=== PATIENT | female | born 1945 | race Hispanic/Latino ===

== ENCOUNTER 2017-04-02 12:59 | Observation (INO) | payer MEDICARE ==
[2017-04-02 13:08] VITALS: BMI 28.6
[2017-04-02 13:56] LABS: BASO % 0.6 % (0.0-2.0); EOS % 0.5 % (0.0-4.0); HEMOGLOBIN 13.4 g/dL (11.0-16.0); LYMPH # 1.8 K/uL (1.0-4.3); LYMPH % 25.8 % (20.0-40.0); MEAN CELL VOLUME 80.5 fL (81.0-99.0); MEAN CORPUSCULAR HEMOGLOBIN 27.1 pg (27.0-31.0); MEAN CORPUSCULAR HGB CONC 33.7 g/dL (33.0-37.0); MONO # 0.6 K/uL (0.0-0.8); MONO % 8.9 % (0.0-10.0); NEUT # 4.5 K/uL (1.8-7.0); NEUT % 64.2 % (50.0-75.0); RBC 4.94 Mil/uL (3.80-5.20); RED CELL DISTRIBUTION WIDTH 13.8 % (11.5-14.5)
[2017-04-02 14:04] LABS: INR 1.1; PROTHROMBIN TIME 11.8 SECONDS (9.7-12.2)
[2017-04-02 14:13] LABS: ALBUMIN 3.9 g/dL (3.5-5.0)
[2017-04-02 14:16] LABS: ALB/GLOB RATIO 1.3 (1.0-2.1); AST/SGOT 21 U/L (14-36); BLOOD UREA NITROGEN 19 mg/dL (7-17); GFR AFRICAN-AMERICAN > 60; GFR NON-AFRICAN AMERICAN > 60
--- NOTE | 2017-04-02 14:16 | CT ---
PROCEDURE: CT HEAD WITHOUT CONTRAST. HISTORY: overnight syncope, no neuro deficits now COMPARISON: None available. TECHNIQUE: Axial computed tomography images were obtained through the head/brain without intravenous contrast. Radiation dose: Total exam DLP = 677.57 mGy-cm. This CT exam was performed using one or more of the following dose reduction techniques: Automated exposure control, adjustment of the mA and/or kV according to patient size, and/or use of iterative reconstruction technique. FINDINGS: HEMORRHAGE: No intracranial hemorrhage. BRAIN: Diffuse atrophy with prominence of the ventricles and sulci noted. No mass effect or edema. Mild scattered white matter hypodensities, which are nonspecific, but often seen with chronic microvascular ischemic disease. 7 x 3 mm hypodensity within the right basal ganglia appears consistent with chronic lacunar infarct. Please note that MRI with diffusion imaging is more sensitive in the detection of acute ischemic event. VENTRICLES: No hydrocephalus. CALVARIUM: Unremarkable. PARANASAL SINUSES: Unremarkable as visualized. No significant inflammatory changes. MASTOID AIR CELLS: Unremarkable as visualized. No inflammatory changes. OTHER FINDINGS: None. IMPRESSION: Generalized atrophy. Mild scattered nonspecific white matter changes. 7 x 3 mm hypodensity within the right basal ganglia appears consistent with chronic lacunar infarct.
[2017-04-02 14:17] LABS: ALT/SGPT 20 U/L (9-52); CALCIUM 9.1 mg/dl (8.6-10.4); HDL CHOLESTEROL 52 mg/dL (30-70)
[2017-04-02 14:28] LABS: LDL CHOLESTEROL 108 mg/dL (0-129)
--- NOTE | 2017-04-02 14:46 | C.PDOC ---
History Of Present Illness 71 y/o female presents to the ED with complaints of syncopal episode at 0330 this morning after going to the bathroom. Pt denies head injury or prodrome. put patient back in bed and slept through the night. Pt came to ED for evaluation. Denies chest pain, SOB, dizziness, vomiting, headache or any other complaints. Time Seen by Provider: 04/02/17 13:28 Chief Complaint (Nursing): Syncope History Per: Patient History/Exam Limitations: no limitations Onset/Duration Of Symptoms: Mins Current Symptoms Are (Timing): Gone Activity At Onset Of Symptoms: Had Just Stood up Seizure Or Post-ictal Symptoms: None Fall Associated With With Symptoms: Yes, No Injury As Result Of Fall Severity: Mild Recent travel outside of the [place]: No - Symptoms Of CVA Recent Head Trauma: No Past Medical History Reviewed: Historical Data, Nursing Documentation, Vital Signs Vital Signs: Last Vital Signs Temp 98.7 F 04/02/17 13:08 Pulse 67 04/02/17 17:00 Resp 17 04/02/17 17:00 BP 141/55 L 04/02/17 17:00 Pulse Ox 97 04/02/17 17:00 - Medical History PMH: Asthma, HTN, Hypercholesterolemia Family History: States: Unknown Family Hx - Social History Hx Alcohol Use: No Hx Substance Use: No - Immunization History Hx Tetanus Toxoid Vaccination: Yes Hx Influenza Vaccination: Yes Hx Pneumococcal Vaccination: Yes Review Of Systems Except As Marked, All Systems Reviewed And Found Negative. Constitutional: Negative for: Fever Eyes: Negative for: Vision Change Cardiovascular: Negative for: Chest Pain Respiratory: Negative for: Shortness of Breath Gastrointestinal: Negative for: Vomiting Neurological: Positive for: Other (syncopal episode). Negative for: Headache, Dizziness Physical Exam - Physical Exam Appears: Non-toxic, No Acute Distress Skin: Warm, Dry, No Rash Head: Atraumatic, Normacephalic Eye(s): bilateral: Normal Inspection, PERRL, EOMI Neck: Normal, Normal ROM, No Midline Cervical Tenderness, No Paracervical Tenderness, Supple Chest: Symmetrical Cardiovascular: Rhythm Regular, No Murmur Respiratory: Normal Breath Sounds, No Rales, No Rhonchi, No Wheezing Gastrointestinal/Abdominal: Normal Exam, Soft, No Tenderness Extremity: Normal ROM Extremity: Bilateral: Atraumatic Neurological/Psych: Oriented x3, Normal Speech ED Course And Treatment - Laboratory Results Result Diagrams: 04/02/17 13:50 04/02/17 13:50 Lab Interpretation: Normal ECG: Interpreted By Me ECG Rhythm: Sinus Rhythm ECG Interpretation: Normal Rate From EC (BPM) O2 Sat by Pulse Oximetry: 98 (room air) Pulse Ox Interpretation: Normal - Radiology CXR: Interpreted by Me CXR Interpretation: Yes: No Acute Disease - Other Rad head CT X-Ray: Read By Radiologist (old 3x7 mm lacunar infarct) Reevaluation Time: 16:28 Reassessment Condition: Unchanged (remains normal) - Physician Consult Information Outcome Of Conversation: d/w Dr. Lopez- Hospitalist- for Dr. Tolbert's Pt's- ok to Tele Obs. Medical Decision Making Medical Decision Making: syncope 3:30 A of ? etiology old lacunar infarct on head CT adm to tele obs to consider cardiac etiologies mild UTI- macrobid started, UC sent. Disposition Doctor Will See Patient In The: Office Counseled Patient/Family Regarding: Studies Performed, Diagnosis - Disposition Disposition: HOSPITALIZED Disposition Time: 16:29 Condition: GOOD - Clinical Impression Clinical Impression: Syncope, UTI (urinary tract infection) - Scribe Statement The provider has reviewed the documentation as recorded by the Najma Waters Provider Attestation: All medical record entries made by the Najma were at my direction and personally dictated by me. I have reviewed the chart and agree that the record accurately reflects my personal performance of the history, physical exam, medical decision making, and the department course for this patient. I have also personally directed, reviewed, and agree with the discharge instructions and disposition.
--- NOTE | 2017-04-02 15:34 | RAD ---
HISTORY: syncope COMPARISON: None available. TECHNIQUE: Chest, one view. FINDINGS: Examination limited by habitus. LUNGS: No focal consolidation. Please note that chest x-ray has limited sensitivity for the detection of pulmonary masses. PLEURA: No significant pleural effusion identified. No definite pneumothorax . CARDIOVASCULAR: Heart size appears within normal limits. OSSEOUS STRUCTURES: Degenerative changes. VISUALIZED UPPER ABDOMEN: Unremarkable. OTHER FINDINGS: None. IMPRESSION: No focal consolidation, significant pleural effusion, or definite pneumothorax identified.
[2017-04-02 16:32] LABS: SQUAMOUS EPITHIAL 2 /hpf (0-5); URINE BACTERIA OCC (<OCC); URINE BILIRUBIN NEGATIVE (NEGATIVE); URINE CLARITY Hazy (Clear); URINE COLOR Yellow (YELLOW); URINE GLUCOSE (UA) NORMAL (Normal); URINE LEUKOCYTE ESTERASE 3+ Leu/uL (Negative); URINE NITRATE NEGATIVE (NEGATIVE); URINE PROTEIN NEGATIVE (NEGATIVE); URINE UROBILINOGEN NORMAL mg/dL (0.2-1.0)
[2017-04-02 16:33] LABS: URINE BLOOD 1+ (NEGATIVE)
--- NOTE | 2017-04-02 18:58 | CP.PCM.HP ---
<Dwain Smart - Last Filed: 04/02/17 20:42> History of Present Illness - History of Present Illness History of Present Illness: CC: I fainted HPI: Pt is a 71 yo F who presents to the ED for syncope. She stated that she woke up today at 3:30am to urinate and as she stood up from the toilet seat she had a syncopal episode. She says she lost consciousness for about 1 minute. Her heard her fall and found her on the bathroom floor on her knees. When she regained consciousness she was asymptomatic and thus went back to sleep. She was driven to the ED today by a friend to investigate her syncopal episode. She denied any remitting or exacerbating factors. She admits to becoming progressively more forgetful in the last couple of years. She states she had a syncopal episode 2 months ago while she was playing cards. She denies chest pain, palpitations, shortness of breath, weight loss, unilateral weakness. PMD: Dr Tolbert Neurologist: Dr Hernandez Spring Repairer Helper Hand: Dr Avalos PMHx: CVA 2008 HTN HLD COPD Umbilical hernia PSHx: Cholecystectomy 2002 Colonoscopy 2016 w/ removal of 3 polyps Allergies: NKA Social Hx: Retired; Lives at home with ; 0.5 ppd for 30 years smoking hx , quit 8 years ago; social drinker; denies illicit drug use Fam Hx: Mother - hx of CVA, ; Father - hx of CVA, ; Brother - carotid stent; Sister - carotid stent Present on Admission - Present on Admission Any Indicators Present on Admission: No Review of Systems - Constitutional Constitutional: absent: Fatigue, Fever, Headache - EENT Eyes: Blurred Vision. absent: Change in Vision, Irritation, Loss of Peripheral Vision Nose/Mouth/Throat: absent: Nasal Congestion, Nasal Discharge, Dysphagia Additional comments: hx of cataracts - Cardiovascular Cardiovascular: absent: Chest Pain, Edema, Palpitations - Respiratory Respiratory: absent: Cough, Dyspnea, Wheezing - Gastrointestinal Gastrointestinal: absent: Abdominal Pain, Constipation, Diarrhea - Genitourinary Genitourinary: absent: Change in Urinary Stream, Dysuria, Urinary Frequency - Musculoskeletal Musculoskeletal: absent: Back Pain, Muscle Weakness, Numbness - Integumentary Additional comments: tip of right shoulder bruised possibly from fall, mildly tender to palpation. she has no difficulty in abducting her shoulder. - Neurological Neurological: Syncope. absent: Confusion, Dizziness, Headaches, Weakness - Endocrine Endocrine: absent: Change in Body Appearance, Fatigue, Palpitations - Hematologic/Lymphatic Hematologic: absent: Easy Bleeding, Easy Bruising, Lymphadenopathy Past Patient History - Past Social History Smoking Status: Former Smoker Alcohol: Social Drugs: Denies Home Situation {Lives}: With Family - CARDIAC Hx Hypercholesterolemia: Yes Hx Hypertension: Yes - PULMONARY Hx Asthma: Yes - INTEGUMENTARY Hx Psoriasis: Yes - PSYCHIATRIC Hx Substance Use: No - SURGICAL HISTORY Hx Surgeries: Yes Other/Comment: POPLYP REMOVAL FROM COLON PER PATIENT 2017 - ANESTHESIA Hx Anesthesia: Yes Hx Anesthesia Reactions: No Meds Allergies/Adverse Reactions: Allergies Allergy/AdvReac Type Severity Reaction Status Date / Time No Known Allergies Allergy Verified 04/02/17 13:07 Physical Exam - Constitutional Appears: Well - Head Exam Head Exam: ATRAUMATIC, NORMAL INSPECTION - Eye Exam Eye Exam: EOMI, Normal appearance, PERRL Pupil Exam: NORMAL ACCOMODATION - ENT Exam ENT Exam: Mucous Membranes Moist, Normal Exam - Neck Exam Neck exam: Positive for: Normal Inspection. Negative for: Lymphadenopathy - Respiratory Exam Respiratory Exam: Clear to Auscultation Bilateral, NORMAL BREATHING PATTERN. absent: Wheezes - Cardiovascular Exam Cardiovascular Exam: REGULAR RHYTHM, RRR, +S1, +S2 - GI/Abdominal Exam GI & Abdominal Exam: Normal Bowel Sounds, Soft. absent: Distended - Rectal Exam Rectal Exam: Deferred - Extremities Exam Extremities exam: Positive for: full ROM, normal inspection. Negative for: pedal edema - Neurological Exam Neurological exam: Alert, CN II-XII Intact, Normal Gait, Oriented x3, Reflexes Normal - Psychiatric Exam Psychiatric exam: Normal Affect, Normal Mood - Skin Skin Exam: Dry, Intact, Normal Color, Warm Results - Vital Signs Recent Vital Signs: Last Vital Signs Temp 98.7 F 04/02/17 13:08 Pulse 67 04/02/17 17:00 Resp 17 04/02/17 17:00 BP 141/55 L 04/02/17 17:00 Pulse Ox 97 04/02/17 17:00 - Labs Result Diagrams: 04/02/17 13:50 04/02/17 13:50 Assessment & Plan (1) Syncope Assessment and Plan: hx of syncopal episode(s), hx of CVA MRI w/o contrast, f/u carotid ultrasound, f/u Echo, f/u Nuerology consult: Dr Hernandez, f/u Cardiology consult: Dr Avalos, f/u aspirin 81 mg po daily Status: Acute (2) UTI (urinary tract infection) Assessment and Plan: UA: blood 1+, leuk esterase 3+, wbc 89, rbc 8, bacteria: occ wbc: 7 asymptomatic - will not start abx at this time Status: Acute (3) Hypertension Assessment and Plan: BP in ED 140/63 con't htn home meds: amlodipine 5mg daily lisinopril/hydrochlorothiazide 25/20mg po daily Status: Acute (4) COPD (chronic obstructive pulmonary disease) Assessment and Plan: 98% on room air con't copd home meds: ipratropium 1 puff IH q6h prn albuterol daily prn montelukast 10mg po daily Status: Acute (5) Hyperlipemia Assessment and Plan: triglyceride, cholesterol, LDL, HDL: wnl con't hyperlipemia home med: pravastatin 80mg po hs Status: Acute (6) Cataract Assessment and Plan: no blurry vision con't cataract home med of propylene glycol .3% 1 each op qid Status: Acute (7) Prophylactic measure Assessment and Plan: heparin 5000u sc q8 protonix 40mg daily po scd heart healthy diet - low fat/cholesterol Status: Acute <Tim Lopez H - Last Filed: 04/03/17 09:06> Results - Vital Signs Recent Vital Signs: Last Vital Signs Temp 98.1 F 04/03/17 07:10 Pulse 63 04/03/17 07:30 Resp 18 04/03/17 07:10 BP 112/55 L 04/03/17 07:10 Pulse Ox 95 04/03/17 07:10 - Labs Result Diagrams: 04/02/17 13:50 04/02/17 13:50 Labs: Laboratory Results - last 24 hr 04/02/17 04/03/17 04/03/17 22:21 01:31 07:11 Phosphorus 3.4 Magnesium 1.9 Total Creatine Kinase < 20 L < 20 L CK-MB (Mass) 0.26 0.28 Troponin I, Quant < 0.0120 < 0.0120 Prolactin 10.9 Attending/Attestation - Attestation I have personally seen and examined this patient.: Yes I have fully participated in the care of the patient.: Yes I have reviewed all pertinent clinical information: Yes Notes (Text): Medical attending: Patient was seen and examined by me, agrees the above note by medical accounts receivable specialist. The patient as described above in the resident note was going to the bathroom in the very early hours of the morning. She remembers being on the commode when she passed out - she does not remember if she was having a bowel movement or was urinating at the time of passing out however she was found on the ground by her . After this she reports going back to bed, she explains that she hurt her shoulder but was able to move her shoulder in all directions she explains to us that she slept well and afterwards when she woke up she had some breakfast and then came to the hospital. I explained to the patient that she might have had a transient changes in her blood pressure such as Valsalva like event causing her to have a syncopal episode. Nevertheless she does have some risk factors, will order a echo, carotid studies, as well as an MRI of the brain, as well as additional cardiac enzymes The patient explains that both of her parents had serious complications related to strokes. The CAT scan done in the emergency room showed that it appears she had old lacunar infarct some time ago but did not show any bleeding. At this time were given notify the patient's pipe tester, as well as her neurologist will need a PT/OT eval (this being said the patient is able to walk to and from the bathroom). She'll be monitored on telemetry for the time being Thank you very much, Tim Lopez
[2017-04-02] MEDS ORDERED: Potassium Chloride 20 mEq/15 ml LIQ UD ONE (20:14)
[2017-04-02] MEDS ORDERED: Potassium Chloride 20 mEq ER Tab PO ONE (20:44)
[2017-04-02 22:34] LABS: MAGNESIUM 1.9 mg/dL (1.6-2.3)
[2017-04-02 22:51] LABS: PROLACTIN 10.9 ng/mL (3.0-18.9)
[2017-04-03 02:03] LABS: CK-MB 0.26 ng/mL (0.0-3.38)
--- NOTE | 2017-04-03 07:41 | CP.PCM.CON ---
History of Present Illness - History of Present Illness History of Present Illness: SYNCOPAL ATTACK DURING MICTURATION SIMILAR EPISODES IN THE PAST > 10 YRS AGO Past Patient History - Past Medical History & Family History Past Medical History?: Yes - Past Social History Smoking Status: Former Smoker - CARDIAC Hx Cardiac Disorders: Yes Hx Hypercholesterolemia: Yes Hx Hypertension: Yes - PULMONARY Hx Respiratory Disorders: Yes Hx Asthma: Yes Hx Chronic Obstructive Pulmonary Disease (COPD): Yes Hx Pneumonia: Yes - NEUROLOGICAL Hx Neurological Disorder: Yes HX Cerebrovascular Accident: Yes (MINI STROKE") Hx Transient Ischemic Attacks (TIA): Yes (MANY YRS AGO ) - HEENT Hx HEENT Problems: Yes Hx Cataracts: Yes (HAD MACKENZIE SURGERY) - RENAL Hx Chronic Kidney Disease: No - ENDOCRINE/METABOLIC Hx Endocrine Disorders: No - HEMATOLOGICAL/ONCOLOGICAL Hx Blood Disorders: Yes Hx Anemia: Yes - INTEGUMENTARY Hx Dermatological Problems: Yes Hx Psoriasis: Yes - MUSCULOSKELETAL/RHEUMATOLOGICAL Hx Falls: Yes - GASTROINTESTINAL Hx Gastrointestinal Disorders: Yes Other/Comment: CHOLECYSTECTOMY, - GENITOURINARY/GYNECOLOGICAL Hx Genitourinary Disorders: No - PSYCHIATRIC Hx Psychophysiologic Disorder: Yes Hx Substance Use: No Other/Comment: RESTLESS LEG SYNDROME - SURGICAL HISTORY Hx Surgeries: Yes Hx Cataract Extraction: Yes Hx Cholecystectomy: Yes Other/Comment: POPLYP REMOVAL FROM COLON PER PATIENT 2017 - ANESTHESIA Hx Anesthesia: Yes Hx Anesthesia Reactions: No Meds Allergies/Adverse Reactions: Allergies Allergy/AdvReac Type Severity Reaction Status Date / Time No Known Allergies Allergy Verified 04/02/17 13:07 - Medications Medications: Current Medications Heparin Sodium (Porcine) (Heparin) 5,000 units SC Q8 [facility] Last Admin: 04/03/17 05:45 Dose: 5,000 units Pantoprazole Sodium (Protonix Ec Tab) 40 mg PO DAILY [facility] Physical Exam - Constitutional Appears: Well, Non-toxic - Head Exam Head Exam: ATRAUMATIC - Eye Exam Pupil Exam: PERRL - Neck Exam Neck exam: Positive for: Full Rom - Cardiovascular Exam Cardiovascular Exam: REGULAR RHYTHM - Neurological Exam Neurological exam: Alert, CN II-XII Intact, Oriented x3, Reflexes Normal Additional comments: RETROGRADE AMNESIA Results - Vital Signs Recent Vital Signs: Last Vital Signs Temp 97.7 F 04/03/17 04:51 Pulse 63 04/03/17 04:51 Resp 20 04/03/17 04:51 BP 115/70 04/03/17 04:51 Pulse Ox 95 04/03/17 04:51 - Labs Result Diagrams: 04/02/17 13:50 04/02/17 13:50 Labs: Laboratory Results - last 24 hr 04/02/17 04/03/17 22:21 01:31 Phosphorus 3.4 Magnesium 1.9 Total Creatine Kinase < 20 L CK-MB (Mass) 0.26 Troponin I, Quant < 0.0120 Prolactin 10.9 Assessment & Plan (1) Syncope and collapse Status: Acute (2) Convulsive syncope Status: Acute - Assessment and Plan (Free Text) Plan: MRI BRAIN EEG CONTINUE ANTIPLATELETS CARDIO TO SEE AMBULATORY VIDEO EEG AN OP IF STABLE FOR 12 HRS FROM NEURO SHE CAN BE DC AND FOLLOW AN OP
[2017-04-03 08:31] LABS: CK-MB 0.28 ng/mL (0.0-3.38)
--- NOTE | 2017-04-03 10:36 | MRI ---
PROCEDURE: MRI BRAIN WITHOUT CONTRAST HISTORY: syncopal episode, hx of cva COMPARISON: Comparison made with CT scan of brain 04/02/2017 at 1414 hours. The that do TECHNIQUE: Multiplanar, multisequence MR images of the brain were obtained without intravenous contrast enhancement. FINDINGS: HEMORRHAGE: No acute parenchymal, subarachnoid nor extra-axial hemorrhage. No evidence of hemosiderin deposition seen on gradient echo weighted sequence DWI: No evidence of an acute or early subacute infarction identified on diffusion imaging. . BRAIN PARENCHYMA: Minimal chronic periventricular white matter ischemic changes. No evidence of obvious parenchymal or extra-axial mass or collection identified on this noncontrast study. Mild generalized volume loss. VENTRICLES: No obstructive hydrocephalus. . CRANIUM: No gross calvarial abnormalities ORBITS: Changes of bilateral cataract surgery again noted. PARANASAL SINUSES/MASTOIDS: Clear VASCULAR SYSTEM: Visualized major vascular flow voids at skull base are patent. OTHER FINDINGS: None. IMPRESSION: No acute intracranial hemorrhage for acute infarct. E is Minimal chronic periventricular white matter ischemic changes. Mild generalized volume loss. Changes of bilateral cataract surgery.
[2017-04-03] MEDS: Pantoprazole 40 mg EC Tab PO SCH (13:22)
--- NOTE | 2017-04-03 14:48 | CP.PCM.CON ---
History of Present Illness - History of Present Illness History of Present Illness: CARDIOLOGY CONSULT NOTE CC: syncope HPI: Pt is a 71 yo F who presented to [facility] for syncope. She stated that she woke up yesterday at 3:30am to urinate and as she stood up from the toilet seat she had a syncopal episode. Denies any prodromal symptoms of nausea, diaphoresis, dizziness, or palpitations. She says she lost consciousness for about 1 minute. Her heard her fall and found her on the bathroom floor on her knees. When she regained consciousness she was asymptomatic and thus went back to sleep. She denies chest pain, palpitations, shortness of breath, weight loss, unilateral weakness. She came to [facility]. Workup revealed normal LVEF by echo. EKG was normal. Brain MRI was normal. Carotid Doppler is pending. Cardiology now consulted. ROS: As described in HPI, otherwise negative PMHx: CVA 2008 HTN HLD COPD Umbilical hernia PSHx: Cholecystectomy 2002 Colonoscopy 2016 w/ removal of 3 polyps Allergies: NKA Social Hx: Retired; Lives at home with ; 0.5 ppd for 30 years smoking hx , quit 8 years ago; social drinker; denies illicit drug use Fam Hx: Mother - hx of CVA, ; Father - hx of CVA, ; Brother - carotid stent; Sister - carotid stent Review of Systems - Constitutional Constitutional: As Per HPI Past Patient History - Past Medical History & Family History Past Medical History?: Yes - Past Social History Smoking Status: Former Smoker - CARDIAC Hx Hypercholesterolemia: Yes Hx Hypertension: Yes - PULMONARY Hx Respiratory Disorders: Yes Hx Asthma: Yes Hx Chronic Obstructive Pulmonary Disease (COPD): Yes Hx Pneumonia: Yes - NEUROLOGICAL Hx Neurological Disorder: Yes HX Cerebrovascular Accident: Yes (MINI STROKE") Hx Transient Ischemic Attacks (TIA): Yes (MANY YRS AGO ) - HEENT Hx HEENT Problems: Yes Hx Cataracts: Yes (HAD MACKENZIE SURGERY) - RENAL Hx Chronic Kidney Disease: No - ENDOCRINE/METABOLIC Hx Endocrine Disorders: No - HEMATOLOGICAL/ONCOLOGICAL Hx Blood Disorders: Yes Hx Anemia: Yes - INTEGUMENTARY Hx Dermatological Problems: Yes Hx Psoriasis: Yes - MUSCULOSKELETAL/RHEUMATOLOGICAL Hx Falls: Yes - GASTROINTESTINAL Hx Gastrointestinal Disorders: Yes Other/Comment: CHOLECYSTECTOMY, - GENITOURINARY/GYNECOLOGICAL Hx Genitourinary Disorders: No - PSYCHIATRIC Hx Psychophysiologic Disorder: Yes Hx Substance Use: No Other/Comment: RESTLESS LEG SYNDROME - SURGICAL HISTORY Hx Surgeries: Yes Hx Cataract Extraction: Yes Hx Cholecystectomy: Yes Other/Comment: POPLYP REMOVAL FROM COLON PER PATIENT 2017 - ANESTHESIA Hx Anesthesia: Yes Hx Anesthesia Reactions: No Meds Allergies/Adverse Reactions: Allergies Allergy/AdvReac Type Severity Reaction Status Date / Time No Known Allergies Allergy Verified 04/02/17 13:07 - Medications Medications: Current Medications Heparin Sodium (Porcine) (Heparin) 5,000 units SC Q8 [facility] Last Admin: 04/03/17 13:23 Dose: 5,000 units Pantoprazole Sodium (Protonix Ec Tab) 40 mg PO DAILY [facility] Last Admin: 04/03/17 13:22 Dose: 40 mg Physical Exam - Constitutional Appears: Well - Head Exam Head Exam: ATRAUMATIC - Eye Exam Eye Exam: Normal appearance - ENT Exam ENT Exam: Mucous Membranes Moist - Neck Exam Neck exam: Positive for: Normal Inspection - Respiratory Exam Respiratory Exam: Clear to Auscultation Bilateral, NORMAL BREATHING PATTERN - Cardiovascular Exam Cardiovascular Exam: +S1, +S2 - GI/Abdominal Exam GI & Abdominal Exam: Normal Bowel Sounds, Soft - Neurological Exam Neurological exam: Oriented x3 - Psychiatric Exam Psychiatric exam: Normal Affect - Skin Skin Exam: Warm Results - Vital Signs Recent Vital Signs: Last Vital Signs Temp 98.1 F 04/03/17 07:10 Pulse 63 04/03/17 07:30 Resp 18 04/03/17 07:10 BP 112/55 L 04/03/17 07:10 Pulse Ox 95 04/03/17 07:10 - Labs Result Diagrams: 04/02/17 13:50 04/02/17 13:50 Labs: Laboratory Results - last 24 hr 04/02/17 04/03/17 04/03/17 22:21 01:31 07:11 Phosphorus 3.4 Magnesium 1.9 Total Creatine Kinase < 20 L < 20 L CK-MB (Mass) 0.26 0.28 Troponin I, Quant < 0.0120 < 0.0120 Prolactin 10.9 - EKG Data EKG comments: Normal tracing Assessment & Plan - Assessment and Plan (Free Text) Assessment: 1. Syncope -- Likely vagal related to micturation. Dehydration is also possible. Cardiac etiology is less likely. 2. Preserved LVEF -- By echo yesterday 3. Normal EKG with narrow QRS 4. UTI Plan: 1. Check orthostatic vitals If carotid Dopplers are normal, then no further inpt cardiac workup required. I would then recommend outpatient follow up with Dr. Avalos for cardiac event monitor to screen for arrhythmic etiology
[2017-04-03] MEDS ORDERED: Potassium Chloride 20 mEq/15 ml LIQ UD PO ONE (15:23)
[2017-04-03 16:49] VITALS: O2SAT 97
--- NOTE | 2017-04-03 16:59 | CP.PCM.PN ---
<Celeste Proctor - Last Filed: 04/03/17 17:22> Subjective - Date & Time of Evaluation Date of Evaluation: 04/03/17 Time of Evaluation: 08:00 - Subjective Subjective: PGY1- Medicine Note- Dr. Lopez's Service Patient seen and examined at bedside. Patient feeling better today. Patient able to ambulate and is not feeling faint. Patient denies shortness of breath, chest pain, abdominal pain, nausea, vomiting, diarrhea, constipation. Objective - Vital Signs/Intake and Output Vital Signs (last 24 hours): Temp Pulse Resp BP Pulse Ox 97.7 F 69 20 122/63 97 04/03/17 15:38 04/03/17 15:38 04/03/17 15:38 04/03/17 15:38 04/03/17 15:38 - Medications Medications: Current Medications Aspirin (Aspirin Chewable) 81 mg PO DAILY [facility] Dipyridamole (Persantine) 50 mg PO DAILY [facility] Heparin Sodium (Porcine) (Heparin) 5,000 units SC Q8 [facility] Last Admin: 04/03/17 13:23 Dose: 5,000 units Hydrochlorothiazide (Microzide) 12.5 mg PO DAILY [facility] Ceftriaxone Sodium 1 gm/ (Sodium Chloride) 100 mls @ 100 mls/hr IVPB Q12H [facility] Lisinopril (Zestril) 10 mg PO DAILY [facility] Pantoprazole Sodium (Protonix Ec Tab) 40 mg PO DAILY [facility] Last Admin: 04/03/17 13:22 Dose: 40 mg Rosuvastatin Calcium (Crestor) 5 mg PO HS [facility] - Labs Labs: PT 11.8 SECONDS (9.7-12.2) 04/02/17 13:50 INR 1.1 04/02/17 13:50 APTT 29 SECONDS (21-34) 04/02/17 13:50 - Constitutional Appears: Well, Non-toxic, No Acute Distress - Head Exam Head Exam: ATRAUMATIC, NORMAL INSPECTION, NORMOCEPHALIC - Eye Exam Eye Exam: EOMI, Normal appearance, PERRL - ENT Exam ENT Exam: Mucous Membranes Moist, Normal Exam - Neck Exam Neck Exam: Full ROM, Normal Inspection. absent: Lymphadenopathy - Respiratory Exam Respiratory Exam: Clear to Ausculation Bilateral, NORMAL BREATHING PATTERN. absent: Rales, Rhonchi, Wheezes, Respiratory Distress, Stridor - Cardiovascular Exam Cardiovascular Exam: REGULAR RHYTHM, RRR, +S1, +S2. absent: Gallop, Rubs, Murmur - GI/Abdominal Exam GI & Abdominal Exam: Soft, Normal Bowel Sounds. absent: Firm, Guarding, Rigid, Tenderness - Extremities Exam Extremities Exam: Full ROM, Normal Capillary Refill, Normal Inspection. absent : Joint Swelling, Pedal Edema - Back Exam Back Exam: NORMAL INSPECTION. absent: rash noted - Neurological Exam Neurological Exam: Alert, Awake, Oriented x3 - Psychiatric Exam Psychiatric exam: Normal Affect, Normal Mood - Skin Skin Exam: Intact, Normal Color, Warm Assessment and Plan - Assessment and Plan (Free Text) Assessment: Assessment & Plan (1) Syncope Assessment and Plan: hx of syncopal episode(s), hx of CVA MRI w/o contrast: No acute intracranial hemorrhage or acute infarct. Minimal chronic periventricular white matter ischemic changes. Mild generalized volume loss. Changes of bilateral cataract surgery. As per Neurology consult: Dr Hernandez, ambulatory video EEG as an outpatient As per cardiology consult: Dr. Richey, syncope likely due to valsalva, cardiac is less likely. Preserved LVEF on echo. Normal EKG with narrow QRS. Dopper is negative, follow up outpatient. aspirin 81 mg po daily Status: Acute (2) UTI (urinary tract infection) Assessment and Plan: UA: blood 1+, leuk esterase 3+, wbc 89, rbc 8, bacteria: occ wbc: 7 asymptomatic - will not start abx at this time Status: Acute (3) Hypertension Assessment and Plan: BP in ED 140/63 con't htn home meds: amlodipine 5mg daily lisinopril/hydrochlorothiazide 25/20mg po daily Status: Acute (4) COPD (chronic obstructive pulmonary disease) Assessment and Plan: 98% on room air con't copd home meds: ipratropium 1 puff IH q6h prn albuterol daily prn montelukast 10mg po daily Status: Acute (5) Hyperlipemia Assessment and Plan: triglyceride, cholesterol, LDL, HDL: wnl con't hyperlipemia home med: pravastatin 80mg po hs Status: Acute (6) Cataract Assessment and Plan: no blurry vision con't cataract home med of propylene glycol .3% 1 each op qid Status: Acute (7) Prophylactic measure Assessment and Plan: heparin 5000u sc q8 protonix 40mg daily po scd heart healthy diet - low fat/cholesterol Status: Acute <Tim Lopez H - Last Filed: 04/04/17 08:06> Objective - Vital Signs/Intake and Output Vital Signs (last 24 hours): Temp Pulse Resp BP Pulse Ox 98.1 F 66 20 107/61 97 04/04/17 04:30 04/04/17 04:30 04/04/17 04:30 04/04/17 04:30 04/04/17 00:00 Intake and Output: 04/04/17 04/04/17 06:59 18:59 Intake Total 120 Balance 120 - Medications Medications: Current Medications Aspirin (Aspirin Chewable) 81 mg PO DAILY [facility] Last Admin: 04/03/17 16:48 Dose: 81 mg Dipyridamole (Persantine) 50 mg PO DAILY [facility] Last Admin: 04/03/17 16:49 Dose: 50 mg Heparin Sodium (Porcine) (Heparin) 5,000 units SC Q8 [facility] Last Admin: 04/04/17 05:55 Dose: 5,000 units Hydrochlorothiazide (Microzide) 12.5 mg PO DAILY [facility] Last Admin: 04/03/17 16:48 Dose: 12.5 mg Ceftriaxone Sodium 1 gm/ (Sodium Chloride) 100 mls @ 100 mls/hr IVPB Q12H [facility] Last Admin: 04/04/17 02:49 Dose: 100 mls/hr Lisinopril (Zestril) 10 mg PO DAILY [facility] Last Admin: 04/03/17 16:48 Dose: 10 mg Pantoprazole Sodium (Protonix Ec Tab) 40 mg PO DAILY [facility] Last Admin: 04/03/17 13:22 Dose: 40 mg Rosuvastatin Calcium (Crestor) 5 mg PO HS [facility] Last Admin: 04/03/17 21:19 Dose: 5 mg - Labs Labs: 04/04/17 07:21 PT 11.8 SECONDS (9.7-12.2) 04/02/17 13:50 INR 1.1 04/02/17 13:50 APTT 29 SECONDS (21-34) 04/02/17 13:50 Attending/Attestation - Attestation I have personally seen and examined this patient.: Yes I have fully participated in the care of the patient.: Yes I have reviewed all pertinent clinical information, including history, physical exam and plan: Yes Notes (Text): Medical attending: Patient was seen and examined by me, agrees the above note by medical detail representative. The patient reports that she is feeling relatively well. She was evaluated by her cardiology group as well as her neurology group. She had MRI done the MRI was negative for any acute findings. This being said she does have a history of a CVA from 2006. There is also a family history of CVA with both her parents as well. She also had echo done the results of which are not currently available. Also a carotid study was done and those were negative for any stenosis I tried to reach out to the patient's primary medical doctor, but he was able to reach the person who is covering that doctors practice Thank you very much, Tim Lopez
[2017-04-04 05:25] VITALS: PULSE 66
[2017-04-04 07:40] LABS: BASO % 0.5 % (0.0-2.0); EOS # 0.1 K/uL (0.0-0.7); EOS % 1.9 % (0.0-4.0); HEMOGLOBIN 12.2 g/dL (11.0-16.0); LYMPH # 1.8 K/uL (1.0-4.3); LYMPH % 34.7 % (20.0-40.0); MEAN CELL VOLUME 81.1 fL (81.0-99.0); MEAN CORPUSCULAR HGB CONC 33.3 g/dL (33.0-37.0); MEAN PLATELET VOLUME 8.5 fL (7.2-11.7); MONO # 0.6 K/uL (0.0-0.8); MONO % 11.3 % (0.0-10.0); NEUT # 2.6 K/uL (1.8-7.0); NEUT % 51.6 % (50.0-75.0); NRBC % 0.1 % (0.0-2.0); RBC 4.5 Mil/uL (3.80-5.20); RED CELL DISTRIBUTION WIDTH 14.1 % (11.5-14.5); WHITE BLOOD COUNT 5.1 K/uL (4.8-10.8)
[2017-04-04 08:16] LABS: ALBUMIN 3.1 g/dL (3.5-5.0)
[2017-04-04 08:18] LABS: GFR AFRICAN-AMERICAN > 60; GFR NON-AFRICAN AMERICAN > 60
[2017-04-04 08:19] LABS: ALB/GLOB RATIO 1.1 (1.0-2.1); ALT/SGPT 23 U/L (9-52); AST/SGOT 15 U/L (14-36); BLOOD UREA NITROGEN 12 mg/dL (7-17); CALCIUM 8.2 mg/dl (8.6-10.4)
[2017-04-04 08:52] VITALS: BP 125/67; RESP 18; TEMP 98
--- NOTE | 2017-04-04 10:05 | CP.PCM.DIS ---
Provider - Provider Date of Admission: 04/02/17 16:29 Attending physician: Tim Lopez DO Primary care physician: Dr Holland Tolbert Consults: Dr Radford/Dr Richey ~ Cardiology Dr Hernandez ~ Neurology Time Spent in preparation of Discharge (in minutes): 29 Hospital Course - Lab Results Lab Results: Most Recent Lab Values WBC 5.1 K/uL (4.8-10.8) 04/04/17 07:21 RBC 4.50 Mil/uL (3.80-5.20) 04/04/17 07:21 Hgb 12.2 g/dL (11.0-16.0) 04/04/17 07:21 Hct 36.5 % (34.0-47.0) 04/04/17 07:21 MCV 81.1 fL (81.0-99.0) 04/04/17 07:21 MCH 27.0 pg (27.0-31.0) 04/04/17 07:21 MCHC 33.3 g/dL (33.0-37.0) 04/04/17 07:21 RDW 14.1 % (11.5-14.5) 04/04/17 07:21 Plt Count 127 K/uL (130-400) L 04/04/17 07:21 MPV 8.5 fL (7.2-11.7) 04/04/17 07:21 Neut % (Auto) 51.6 % (50.0-75.0) 04/04/17 07:21 Lymph % (Auto) 34.7 % (20.0-40.0) 04/04/17 07:21 [place] % (Auto) 11.3 % (0.0-10.0) H 04/04/17 07:21 Eos % (Auto) 1.9 % (0.0-4.0) 04/04/17 07:21 Baso % (Auto) 0.5 % (0.0-2.0) 04/04/17 07:21 Neut # 2.6 K/uL (1.8-7.0) 04/04/17 07:21 Lymph # 1.8 K/uL (1.0-4.3) 04/04/17 07:21 [place] # 0.6 K/uL (0.0-0.8) 04/04/17 07:21 Eos # 0.1 K/uL (0.0-0.7) 04/04/17 07:21 Baso # 0.0 K/uL (0.0-0.2) 04/04/17 07:21 PT 11.8 SECONDS (9.7-12.2) 04/02/17 13:50 INR 1.1 04/02/17 13:50 APTT 29 SECONDS (21-34) 04/02/17 13:50 Sodium 137 mmol/L (132-148) 04/04/17 07:21 Potassium 3.8 mmol/L (3.6-5.2) 04/04/17 07:21 Chloride 103 mmol/L (98-107) 04/04/17 07:21 Carbon Dioxide 26 mmol/L (22-30) 04/04/17 07:21 Anion Gap 12 (10-20) 04/04/17 07:21 BUN 12 mg/dL (7-17) 04/04/17 07:21 Creatinine 0.6 MG/DL (0.7-1.2) L 04/04/17 07:21 Est GFR ( Amer) > 60 04/04/17 07:21 Est GFR (Non-Af Amer) > 60 04/04/17 07:21 POC Glucose (mg/dL) 126 mg/dL (65-110) H 04/02/17 13:10 Random Glucose 107 mg/dL (65-105) H 04/04/17 07:21 Hemoglobin A1c 5.9 % (4.2-6.5) 04/02/17 13:50 Calcium 8.2 mg/dl (8.6-10.4) L 04/04/17 07:21 Phosphorus 3.4 mg/dL (2.5-4.5) 04/02/17 22:21 Magnesium 1.9 mg/dL (1.6-2.3) 04/02/17 22:21 Total Bilirubin 0.4 mg/dL (0.2-1.3) 04/04/17 07:21 AST 15 U/L (14-36) 04/04/17 07:21 ALT 23 U/L (9-52) 04/04/17 07:21 Alkaline Phosphatase 75 U/L (38-126) 04/04/17 07:21 Total Creatine Kinase < 20 U/L (30-135) L 04/03/17 07:11 CK-MB (Mass) 0.28 ng/mL (0.0-3.38) 04/03/17 07:11 Troponin I < 0.0120 ng/mL (0.00-0.120) 04/02/17 13:50 Troponin I, Quant < 0.0120 ng/mL (0.00-0.120) 04/03/17 07:11 Total Protein 5.9 g/dL (6.3-8.3) L 04/04/17 07:21 Albumin 3.1 g/dL (3.5-5.0) L D 04/04/17 07:21 Globulin 2.7 gm/dL (2.2-3.9) 04/04/17 07:21 Albumin/Globulin Ratio 1.1 (1.0-2.1) 04/04/17 07:21 Triglycerides 83 mg/dL (0-149) 04/02/17 13:50 Cholesterol 169 mg/dL (0-199) 04/02/17 13:50 LDL Cholesterol Direct 108 mg/dL (0-129) 04/02/17 13:50 HDL Cholesterol 52 mg/dL (30-70) 04/02/17 13:50 Prolactin 10.9 ng/mL (3.0-18.9) 04/02/17 22:21 Urine Color Yellow (YELLOW) 04/02/17 16:08 Urine Clarity Hazy (Clear) 04/02/17 16:08 Urine pH 6.0 (5.0-8.0) 04/02/17 16:08 Ur Specific [place] 1.016 (1.003-1.030) 04/02/17 16:08 Urine Protein Negative mg/dL (NEGATIVE) 04/02/17 16:08 Urine Glucose (UA) Normal mg/dL (Normal) 04/02/17 16:08 Urine Ketones Negative mg/dL (NEGATIVE) 04/02/17 16:08 Urine Blood 1+ (NEGATIVE) H 04/02/17 16:08 Urine Nitrate Negative (NEGATIVE) 04/02/17 16:08 Urine Bilirubin Negative (NEGATIVE) 04/02/17 16:08 Urine Urobilinogen Normal mg/dL (0.2-1.0) 04/02/17 16:08 Ur Leukocyte Esterase 3+ Neri/uL (Negative) H 04/02/17 16:08 Urine WBC (Auto) 89 /hpf (0-5) H 04/02/17 16:08 Urine RBC (Auto) 8 /hpf (0-3) H 04/02/17 16:08 Ur Squamous Epith Cells 2 /hpf (0-5) 04/02/17 16:08 Ur Transition Epith Cell < 1 /hpf (0-3) 04/02/17 16:08 Urine Bacteria Occ (<OCC) H 04/02/17 16:08 - Hospital Course Hospital Course: This is a very pleasant 71 year old female who came to the ER after early in the morning she went to the bathroom and passed out. She did not remember if she had urinated or had a BM but was found by her . She walked back to bed and then in the morning decided to come to the ER. There is a history of CVA in the distant past. Also there is a family history of CVA in both parents. She had a CT done in the ER and this was negative. Because of this history of CVA we also checked an MRI without contrast and it was negative for any new acute process. Carotids were done and were negative as well. She also had an echo done as well. While here she was evaluated by her cardiologst and also neurologist. She was able to walk in the hallway today without any assistance - she did not report chest pain, did not report palpitations, did not have shortness of breath , did not have abdominal pain, did not have headache, no neuro deficits. I observed her walking to the refrigerator and getting food. She also denied having dizziness or lightheadedness when she uses the commode. Eating ok and bathroom ok. We walked her on telemetry and per review of telemetry she was NSR in the 70s. Overnight had sinus chandler in the 50s. She had UA which suggest a UTI however denied symptoms. She was nevertheless placed on rocephin while here From resident HPI: " HPI: Pt is a 71 yo F who presents to the ED for syncope. She stated that she woke up today at 3:30am to urinate and as she stood up from the toilet seat she had a syncopal episode. She says she lost consciousness for about 1 minute. Her heard her fall and found her on the bathroom floor on her knees. When she regained consciousness she was asymptomatic and thus went back to sleep. She was driven to the ED today by a friend to investigate her syncopal episode. She denied any remitting or exacerbating factors. She admits to becoming progressively more forgetful in the last couple of years. She states she had a syncopal episode 2 months ago while she was playing cards. She denies chest pain, palpitations, shortness of breath, weight loss,unilateral weakness. " Discharge Exam - Head Exam Head Exam: ATRAUMATIC, NORMAL INSPECTION, NORMOCEPHALIC - Eye Exam Eye Exam: EOMI, Normal appearance - ENT Exam ENT Exam: Mucous Membranes Moist - Respiratory Exam Respiratory Exam: Clear to PA & Lateral, NORMAL BREATHING PATTERN, UNREMARKABLE - Cardiovascular Exam Cardiovascular Exam: REGULAR RHYTHM - Neurological Exam Neurological exam: Alert, CN II-XII Intact, Oriented x3 - Psychiatric Exam Psychiatric exam: Normal Affect, Normal Mood Discharge Plan - Follow Up Plan Condition: GOOD Disposition: HOME/ ROUTINE Instructions: Urinary Tract Infection in Women (DC), Urinary Tract Infection in Women (GEN), Heart Healthy Diet (DC), Syncope (DC), Low Sodium Diet (DC) Additional Instructions: Activity as tolerated, rest in between. Referrals: Ifeanyi Avalos MD [Staff Provider] - 1 Week Holland Tolbert [Staff Provider] - 1 Week
[2017-04-04] MEDS: Pantoprazole 40 mg EC Tab PO SCH (10:06)
--- NOTE | 2017-04-06 04:54 | CARD ---
APPROVED REPORT EXAM: Two-dimensional and M-mode echocardiogram with Doppler and color Doppler. Other Information Quality : GoodRhythm : INDICATION Syncope COPD RISK FACTORS Hypertension Hyperlipidemia M-Mode DIMENSIONS RVDd0.98 (2.1-3.2cm)Left Atrium (MM)2.98 (2.5-4.0cm) IVSd1.07 (0.7-1.1cm)Aortic Root2.98 (2.2-3.7cm) LVDd4.56 (4.0-5.6cm)Aortic Cusp Exc.1.60 (1.5-2.0cm) PWd1.14 (0.7-1.1cm)FS (%) 31 % LVDs3.12 (2.0-3.8cm)LVEF (%)59 (>50%) Mitral Valve MV E Jfloadqr607.8cm/sMV A Gchhvnmb098.8cm/sE/A ratio0.9 TDI E/Lateral E'0.0E/Medial E'0.0 Tricuspid Valve TR Peak [id number]/sTR Peak [id number] <Conclusion> Left ventricle: thickness: normal; size: normal; overall ejection fraction: 59%: diastolic filling pressures: elevated Mitral valve: annulus: normal: leaflets: normal: excursion: normal; no significant trans-mitral gradient: mild incompetence: left atrium: normal Aortic valve: leaflets: normal: excursion: normal; no significant trans-aortic gradient: No significant incompetence: aortic root: normal Right sided Structures: Pulmonary valve: normal; no significant incompetence; Tricuspid valve: normal; mild incompetence: Intra-cardiac hemodynamics: pulmonary systolic pressures: 37 mmHgl; central venous pressures: normal No pericardial effusion
--- NOTE | 2017-04-06 10:48 | VASCLAB ---
PROCEDURE: HISTORY: I67.89 COMPARISON: None available. TECHNIQUE: Grayscale and duplex Doppler evaluation of the cervical carotid and vertebral arteries were performed. The common carotid, carotid bifurcations and cervical Internal Carotid Artery (ICA) and proximal External Carotid Artery (ECA) were evaluated. The vertebral arteries were evaluated for gross patency and flow direction. Report prepared by AMARA Ramirez FINDINGS: RIGHT CAROTID ARTERIES: 1. Common Carotid Artery: No significant focal plaque formation of the right common carotid artery. Maximum Peak Systolic velocity: 103 cm/sec: End-diastolic velocity 14 cm/sec. 2. Carotid Bifurcation: Minimal calcific plaque formation. Maximum Peak Systolic velocity: 72 cm/sec: End-diastolic velocity 14 cm/sec. 3. Internal Carotid Artery: Plaque description: 3.1. Proximal Segment: Peak systolic velocity 67 cm/sec: End-diastolic velocity 14 cm/sec - % stenosis 0-15% 3.2. Middle Segment: Peak systolic velocity 59 cm/sec: End-diastolic velocity 0 cm/sec - % stenosis 0-15% 3.3. Distal Segment: Peak systolic velocity 73 cm/sec: End-diastolic velocity 23 cm/sec - % stenosis 0-15% 4. External Carotid Artery: No significant focal plaque formation. Peak systolic velocity 91 cm/sec 5. ICA/CCA Ratio: 0.9 LEFT CAROTID ARTERIES: 1. Common Carotid Artery: No significant focal plaque formation of the left common carotid artery. Maximum Peak Systolic velocity: 78 cm/sec: End-diastolic velocity 19 cm/sec. 2. Carotid Bifurcation: Minimal calcific plaque formation. Maximum Peak Systolic velocity: 53 cm/sec: End-diastolic velocity 11 cm/sec. 3. Internal Carotid Artery: Plaque description: 3.1. Proximal Segment: Peak systolic velocity 83 cm/sec: End-diastolic velocity 27 cm/sec - % stenosis 0-15% 3.2. Middle Segment: Peak systolic velocity 67 cm/sec: End-diastolic velocity 17 cm/sec - % stenosis 0-15% 3.3. Distal Segment: Peak systolic velocity 64 cm/sec: End-diastolic velocity 19 cm/sec - % stenosis 0-15% 4. External Carotid Artery: No significant focal plaque formation. Peak systolic velocity 119 cm/sec 5. ICA/CCA Ratio: 1.3 VERTEBRAL ARTERIES: 1. Right Vertebral Artery: The right vertebral artery flow direction is antegrade. 2. Left Vertebral Artery: The left vertebral artery flow direction is antegrade. OTHER FINDINGS: 1. Right Brachial Blood pressure: Unable to obtain due to iv lines 2. Left Brachial Blood pressure: Unable to obtain due to iv lines IMPRESSION: RIGHT: Duplex scan does not suggest hemodynamically significant stenosis of the right extracranial carotid arteries. LEFT: Duplex scan does not suggest hemodynamically significant stenosis of the left extracranial carotid arteries.
--- NOTE | 2017-04-06 11:43 | CARD ---
APPROVED REPORT EKG Measurement Heart [id number] <Conclusion> Normal sinus rhythm Normal ECG
== END 2017-04-04 13:19 | disposition home or self-care (01) ==
LOC: C.ER 12:59 → C.9E 16:29 → C.6T 19:56
PROVIDERS: ADMIT Hospitalist; ATTEND Hospitalist
DX: N39.0 Urinary tract infection, site not specified (principal); R55 Syncope and collapse; J45.909 Unspecified asthma, uncomplicated; I10 Essential (primary) hypertension; E78.00 Pure hypercholesterolemia, unspecified; K42.9 Umbilical hernia without obstruction or gangrene; F17.210 Nicotine dependence, cigarettes, uncomplicated; E78.5 Hyperlipidemia, unspecified
CPT/HCPCS: 36415; 70450; 70551; 71010; 80053; 80061; 81001; 82330; 82948; 83036; 83735; 84100; 84146; 84484; 85025; 85610; 85730; 87086; 93306; 93880; 95812; 97116; 97161; 97165; 97530; 99285; G0378; G8978; G8979; G8980; G8987; G8988; G8989; J0696; J1644